=== PATIENT | male | born 1975 | race Two or more races ===

== ENCOUNTER 2018-12-18 15:33 | Emergency (ER) | payer OTHER ==
[~2018-12-18] VITALS: Ht 177.8 cm; Wt 81.6 kg
[~2018-12-18 15:33] MED LIST: AMOX1TAB12 PO; DOLOGEN CAPLET1 EACH PO; PROMETHAZINE W473 ML; QVAR7.3 G1; ZANTAC150 MG
[2018-12-18] MEDS ORDERED: [UNRECOGNIZED DRUG - REMARK] (16:30)
== END 2018-12-18 19:00 | disposition home or self-care (01) ==
LOC: ER 15:33
DX: M62.830 Muscle spasm of back (principal)

== ENCOUNTER 2019-06-06 12:34 | Outpatient (CLI) | payer OTHER ==
[~2019-06-06 12:34] MED LIST changes: +[UNRECOGNIZED DRUG - REMARK]
== END 2019-06-06 12:44 | disposition home or self-care (01) ==
LOC: LAB 12:34
DX: E03.8 Other specified hypothyroidism (principal); I11.9 Hypertensive heart disease without heart failure; R42 Dizziness and giddiness; J01.90 Acute sinusitis, unspecified; R10.84 Generalized abdominal pain

== ENCOUNTER 2019-11-22 11:50 | Outpatient (CLI) | payer OTHER | END 2019-11-22 11:56 | disposition home or self-care (01) | LOC: LAB 11:50 | DX: J11.1 Influenza due to unidentified influenza virus with other respiratory manifestations (principal); R50.9 Fever, unspecified ==

== ENCOUNTER 2023-11-06 17:14 | Emergency (ER) | payer OTHER ==
[~2023-11-06] VITALS: Ht 177.8 cm; Wt 72.6 kg
[2023-11-06 19:50] LABS: HEMATOCRIT 43.5 % (39.0-48.0); HEMOGLOBIN 14.7 g/dL (13-16.00); MEAN CELL VOLUME 91.9 fL (80.0-100.00); MEAN CORPUSCULAR HEMOGLOBIN 31.1 pg (27.00-32.0); MEAN CORPUSCULAR HGB CONC 33.9 g/dl (32.0-36.0); PLATELET COUNT 195 K/uL (150-450); RED BLOOD COUNT 4.73 M/uL (4.00-6.00); RED CELL DISTRIBUTION WIDTH 13.8 % (11.5-14.5)
[2023-11-06 19:51] LABS: URINE APPEARANCE Clear; URINE BILIRRUBIN Negative (NEGATIVE); URINE BLOOD Negative; URINE COLOR Yellow; URINE GLUCOSE Negative (NEGATIVE); URINE LEUKOCYTE Negative; URINE NITRATE Negative; URINE PROTEIN Negative (NEGATIVE); URINE UROBILINOGEN 0.2 E.U./dl
[2023-11-06 19:54] LABS: URINE BACTERIA 16.3 uL (0.0-1933); URINE EPITHELIAL CELLS 2.3 uL (0.0-38.8); URINE RBC 14.5 uL (0.0-20.8)
[2023-11-06 20:03] LABS: URINE WBC 0.9 uL (0.0-23.2)
[2023-11-06 21:46] LABS: BILIRUBIN TOTAL 1.19 mg/dL (0.3-1.2); BILIRUBIN,CONJUGATED 0.23 mg/dL (0.0-0.2); BILIRUBIN,UNCONJUGATED 0.96 mg/dL (0.0-0.6); CALCIUM 9.2 mg/dL (8.5-10.1); CREATININE SERUM 1.1 mg/dL (0.70-1.30); GFR 71.75; POTASSIUM 3.77 mEq/L (3.5-5.1)
[2023-11-06] MEDS ORDERED: DICY20TA PO (23:11)
[2023-11-06] MEDS ORDERED: INTESTINEX680 M1 PO (23:11)
[2023-11-06] MEDS ORDERED: PEPCID AC20 MG PO (23:11)
== END 2023-11-06 23:27 | disposition home or self-care (01) ==
LOC: ER 17:14
PROVIDERS: General Practice
DX: R10.9 Unspecified abdominal pain (principal)

== ENCOUNTER 2024-03-26 10:46 | Emergency (ER) | payer OTHER ==
[~2024-03-26] VITALS: Ht 177.8 cm; Wt 77.1 kg
[~2024-03-26 10:46] MED LIST changes: +DICY20TA PO; +INTESTINEX680 M1 PO; +PEPCID AC20 MG PO
[2024-03-26] MEDS ORDERED: KETOROLAC TROMETHAMINE 30 MG VIAL IM STA (11:28)
== END 2024-03-26 13:21 | disposition home or self-care (01) ==
LOC: ER 10:47
DX: M25.572 Pain in left ankle and joints of left foot (principal)
CPT/HCPCS: 29515; 73610; 96372; 99283; J1885